=== PATIENT | female | born 1935 | race Caucasian/White ===

== ENCOUNTER 2019-06-19 04:09 | Emergency (ER) | payer MEDICARE ==
[~2019-06-19] VITALS: Ht 165.1 cm; Wt 86.2 kg
[~2019-06-19 04:09] MED LIST: ASPI81EC PO; ATOR10 PO; ATOR20 PO; CALC.25 PO; CIPR500 PO; CLON.2 PO; FURO20; HYDACE5 PO; K-Dur10 MEQ PO; LOSA25; LOSARTAN POTAS100 MG PO; METO100 PO; METO50; Motion Sickness25 M1 PO; Norco 5-325 Ta1 EACH PO; OXYACE5T PO; POTCHL10ER; PROM25 PO; RISE35 PO; RXHYDACE PO; RXOXYACE PO; TRIHYD253B PO; [UNRECOGNIZED DRUG - REMARK]
[2019-06-19 04:55] LABS: BASOPHILS ABSOLUTE AUTO 0.04 K/mm3 (0.00-0.23); BASOPHILS PERCENT AUTO 1 % (0-2); EOSINOPHILS ABSOLUTE AUTO 0.15 K/mm3 (0.00-0.68); EOSINOPHILS PERCENT AUTO 2 % (0-6); Hematocrit 39.5 % (33.0-51.0); Hemoglobin 12.8 g/dL (11.5-16.0); IMMATURE GRAN ABSOLUTE AUTO 0.01 K/mm3 (0.00-0.10); IMMATURE GRAN PERCENT AUTO 0 % (0-1); LYMPHOCYTES ABSOLUTE AUTO 2.16 K/mm3 (0.84-5.20); LYMPHOCYTES PERCENT AUTO 29 % (21-46); MONOCYTES ABSOLUTE AUTO 0.53 K/mm3 (0.16-1.47); MONOCYTES PERCENT AUTO 7 % (4-13); Mean Corpuscular HGB 31.1 pg (26.0-34.0); Mean Corpuscular HGB Conc 32.4 g/dL (31.5-36.5); Mean Corpuscular Volume 96 fL (80-100); Mean Platelet Volume 10.3 fL (9.1-12.4); NEUTROPHILS ABSOLUTE AUTO 4.64 K/mm3 (1.96-9.15); NEUTROPHILS PERCENT AUTO 62 % (41-73); Platelet Count 300 K/mm3 (150-400); RDW Coefficient Variation 13.3 % (11.7-14.2); RDW Standard Deviation 47.6 fL (35.1-46.3); Red Blood Cell Count 4.11 M/mm3 (3.80-5.20); White Blood Cell Count 7.53 K/mm3 (4.00-11.30)
[2019-06-19 05:13] LABS: Albumin, Blood 3.2 g/dL (3.4-5.0); Albumin/Globulin Ratio 0.8 (0.8-1.8); Bilirubin, Total 0.6 mg/dL (0.1-1.0); Calcium, Blood 8.7 mg/dL (8.5-10.1); Creatinine, Blood 1.5 mg/dL (0.40-1.00); Globulin, Blood 3.9 g/dL (2.2-4.0); Total Protein, Blood 7.1 g/dL (6.4-8.2)
[2019-06-19] MEDS ORDERED: MECL12.5 PO (06:14)
== END 2019-06-19 06:00 | disposition home or self-care (01) ==
LOC: ER 04:09
PROVIDERS: Emergency Medicine
DX: R42 Dizziness and giddiness (principal); I10 Essential (primary) hypertension; E78.5 Hyperlipidemia, unspecified; Z79.899 Other long term (current) drug therapy; Z79.82 Long term (current) use of aspirin
CPT/HCPCS: 80053; 84484; 85025; 93005; 93010; 96361; 96374; 99284-25; J2405; J7030

== ENCOUNTER → 2020-12-19 | Outpatient (CLI) | payer MEDICARE ==
[~2020-12-19] MED LIST changes: +MECL12.5 PO
== END | disposition home or self-care (01) ==
LOC: LAB 13:00 → LAB SHORT 13:00
DX: N30.00 Acute cystitis without hematuria (principal); R82.90 Unspecified abnormal findings in urine
CPT/HCPCS: 87077; 87086; 87186

== ENCOUNTER → 2021-02-19 | Outpatient (CLI) | payer MEDICARE ==
[2021-02-19 16:05] LABS: Source, Urine Clean Catch
[2021-02-19 17:45] LABS: Appearance, Urine Hazy (Clear); Bilirubin, Urine Neg (Neg); Blood, Urine 1+ (Neg); Color, Urine Yellow (P-Yellow); Glucose Qualitative, Urine Neg (Neg); Ketones, Urine Neg (Neg); Leukocyte Esterase, Urine 3+ (Neg); Nitrite, Urine Pos (Neg); Protein, Urine 1+ (Neg); Specific Gravity, Urine 1.015 (1.003-1.022); Urobilinogen, Urine NORM (Normal)
[2021-02-19 17:59] LABS: Bacteria Many /hpf; Squamous Epithelial Cells Mod /hpf (Few)
[2021-02-19 18:00] LABS: Renal Epithelial Rare /hpf (0-Rare); Transitional Epithelial Cells Few /hpf (0-Rare)
== END | disposition home or self-care (01) ==
LOC: LAB 16:03 → LAB SHORT 16:03
PROVIDERS: Internal Medicine
DX: R35.0 Frequency of micturition (principal)
CPT/HCPCS: 81001; 87077; 87086; 87186

== ENCOUNTER → 2021-02-24 | Outpatient (CLI) | payer MEDICARE ==
[2021-02-24 10:06] LABS: Source, Urine Voided
[2021-02-24 13:12] LABS: Appearance, Urine Cloudy (Clear); Bilirubin, Urine Neg (Neg); Blood, Urine 1+ (Neg); Color, Urine Yellow (P-Yellow); Glucose Qualitative, Urine Neg (Neg); Ketones, Urine Neg (Neg); Leukocyte Esterase, Urine 3+ (Neg); Nitrite, Urine Pos (Neg); Protein, Urine 2+ (Neg); Specific Gravity, Urine 1.015 (1.003-1.022); Urobilinogen, Urine NORM (Normal)
[2021-02-24 13:43] LABS: Amorphous Light (0-Heavy); Bacteria Many /hpf; Squamous Epithelial Cells Few /hpf (Few); Transitional Epithelial Cells Few /hpf (0-Rare)
[2021-02-24 13:44] LABS: Renal Epithelial Rare /hpf (0-Rare)
== END | disposition home or self-care (01) ==
LOC: LAB 08:30 → LAB SHORT 08:30 → LAB FUT 02-20 07:35
PROVIDERS: Internal Medicine
DX: R82.90 Unspecified abnormal findings in urine (principal)
CPT/HCPCS: 81001; 87077; 87086; 87186

== ENCOUNTER → 2021-05-21 | Outpatient (CLI) | payer MEDICARE ==
[2021-05-21 16:41] LABS: Source, Urine Voided
[2021-05-21 18:53] LABS: Appearance, Urine Hazy (Clear); Bilirubin, Urine Neg (Neg); Blood, Urine 1+ (Neg); Color, Urine Yellow (P-Yellow); Glucose Qualitative, Urine Neg (Neg); Ketones, Urine Neg (Neg); Leukocyte Esterase, Urine 3+ (Neg); Nitrite, Urine Pos (Neg); Protein, Urine 1+ (Neg); Urobilinogen, Urine NORM (Normal)
[2021-05-21 19:23] LABS: Bacteria Many /hpf; Squamous Epithelial Cells Many /hpf (Few); White Blood Cells, Urine 25-50 /hpf (0-5)
== END | disposition home or self-care (01) ==
LOC: LAB SHORT 16:40 → LAB 16:40 → LAB FUT 02-25 13:50
PROVIDERS: Internal Medicine
DX: N39.0 Urinary tract infection, site not specified (principal)
CPT/HCPCS: 81001; 87077; 87086; 87147; 87186

== ENCOUNTER → 2021-05-23 | Outpatient (CLI) | payer MEDICARE ==
[2021-05-23 09:50] LABS: Source, Urine Clean Catch
[2021-05-23 11:50] LABS: Appearance, Urine Hazy (Clear); Bilirubin, Urine Neg (Neg); Blood, Urine 1+ (Neg); Color, Urine Yellow (P-Yellow); Glucose Qualitative, Urine Neg (Neg); Ketones, Urine Neg (Neg); Leukocyte Esterase, Urine 3+ (Neg); Nitrite, Urine Pos (Neg); Protein, Urine 1+ (Neg); Urobilinogen, Urine NORM (Normal)
[2021-05-23 12:00] LABS: Bacteria Many /hpf; Red Blood Cells, Urine 0-2 /hpf (0-2); Squamous Epithelial Cells Few /hpf (Few); White Blood Cells, Urine 50-100 /hpf (0-5)
== END | disposition home or self-care (01) ==
LOC: LAB 09:48 → LAB SHORT 09:48
PROVIDERS: Internal Medicine
DX: N39.0 Urinary tract infection, site not specified (principal); R82.90 Unspecified abnormal findings in urine
CPT/HCPCS: 81001; 87077; 87086; 87186

== ENCOUNTER → 2021-06-08 | Outpatient (CLI) | payer MEDICARE ==
[2021-06-08 15:38] LABS: Appearance, Urine Hazy (Clear); Bilirubin, Urine Neg (Neg); Blood, Urine 3+ (Neg); Color, Urine Yellow (P-Yellow); Glucose Qualitative, Urine Neg (Neg); Ketones, Urine Neg (Neg); Leukocyte Esterase, Urine 3+ (Neg); Nitrite, Urine Pos (Neg); Protein, Urine 2+ (Neg); Specific Gravity, Urine 1.015 (1.003-1.022); Urobilinogen, Urine NORM (Normal)
[2021-06-08 15:57] LABS: White Blood Cells, Urine TNTC /hpf (0-5)
[2021-06-08 15:58] LABS: Bacteria Many /hpf; Squamous Epithelial Cells Mod /hpf (Few)
== END | disposition home or self-care (01) ==
LOC: LAB 13:57 → LAB SHORT 13:57 → LAB FUT 05-22 17:20 → EDSTATUS 05-22 17:20
PROVIDERS: Internal Medicine
DX: N39.0 Urinary tract infection, site not specified (principal); R82.90 Unspecified abnormal findings in urine
CPT/HCPCS: 81001; 87077; 87086; 87186

== ENCOUNTER → 2021-07-06 | Outpatient (CLI) | payer MEDICARE ==
[2021-07-06 15:00] LABS: Source, Urine Clean Catch
[2021-07-06 17:47] LABS: Appearance, Urine Clear (Clear); Bilirubin, Urine Neg (Neg); Blood, Urine 2+ (Neg); Color, Urine Yellow (P-Yellow); Glucose Qualitative, Urine Neg (Neg); Ketones, Urine Neg (Neg); Leukocyte Esterase, Urine Neg (Neg); Nitrite, Urine Neg (Neg); Protein, Urine Neg (Neg); Specific Gravity, Urine 1.015 (1.003-1.022); Urobilinogen, Urine NORM (Normal)
[2021-07-06 18:22] LABS: Bacteria Few /hpf; Squamous Epithelial Cells Few /hpf (Few)
== END | disposition home or self-care (01) ==
LOC: LAB 14:59 → LAB SHORT 14:59 → LAB FUT 06-11 17:15 → EDSTATUS 06-11 17:15
PROVIDERS: Internal Medicine
DX: N39.0 Urinary tract infection, site not specified (principal)
CPT/HCPCS: 81001

== ENCOUNTER → 2021-11-09 | Outpatient (CLI) | payer MEDICARE ==
[2021-11-12 11:10] LABS: M-SPIKE, % Not Observed % (Not Observed); PROTEIN,TOTAL,URINE 14.6 mg/dL (Not Estab.)
== END | disposition home or self-care (01) ==
LOC: LAB 06:00 → LAB SHORT 06:00
PROVIDERS: Internal Medicine
DX: R79.89 Other specified abnormal findings of blood chemistry (principal)
CPT/HCPCS: 81050; 84156; 84166

== ENCOUNTER 2022-09-27 08:02 | Day surgery (SDC) | payer MEDICARE ==
[~2022-09-27] VITALS: Ht 165.1 cm; Wt 79.4 kg
--- NOTE | 2022-09-27 11:08 | NUR ---
PT SITTING IN RECLINER. PT DRINKING COFFEE AND VISITING WITH FAMILY. LACW PACEMAKER CHANGE-OUT SITE SOFT NON-TENDER WITH NO HEMATOMA, NO BLEEDING AND INTACT DRESSING. PT DENIES CP. CALL LIGHT IN REACH.
--- NOTE | 2022-09-27 11:46 | NUR ---
NO CHANGES TO LACW SITE. DISCHARGE INSTRUCTIONS REVIEWED ALL QUESTIONS ANSWERED. FULL REPORT PROVIDED JESSICA Ordaz RN TO ASSUME CARE OF PT IN RECOVERY ROOM.
== END 2022-09-27 11:55 | disposition home or self-care (01) ==
LOC: MHTC 08:02
DX: Z45.010 Encounter for checking and testing of cardiac pacemaker pulse generator [battery] (principal); E78.5 Hyperlipidemia, unspecified; I10 Essential (primary) hypertension
CPT/HCPCS: 33228; 99152; 99153; C1781; C1785; J0690; J1644; J2250; J3010; J7030; J7040

== ENCOUNTER → 2023-01-17 | Outpatient (CLI) | payer MEDICARE ==
[2023-01-17 17:21] LABS: Creatinine, Urine Random 64.6 mg/dL (27.00-270.00); Protein, Urine Random 34.7 mg/dL (0.0-11.9); Protein/Creat Ratio, Ur Random 0.5
== END | disposition home or self-care (01) ==
LOC: LAB 05:17 → LAB SHORT 05:17
PROVIDERS: Internal Medicine Nephrology
DX: N18.4 Chronic kidney disease, stage 4 (severe) (principal)
CPT/HCPCS: 82570; 84156

== ENCOUNTER 2023-02-19 19:18 | Inpatient (IN) | payer MEDICARE ==
[~2023-02-19] VITALS: Ht 157.5 cm; Wt 74.0 kg
[2023-02-19 19:31] LABS: Base Excess Venous -1.9 mmol/L; Bicarbonate Venous 22.2 mmol/L (24.0-30.0); PCO2 Venous 42.5 mmHg (38-42); pH Blood Venous 7.35 (7.34-7.37)
[2023-02-19] MEDS ORDERED: VITAMIN B125000 MC1 PO (19:41)
[2023-02-19 19:48] LABS: BASOPHILS ABSOLUTE AUTO 0.07 K/mm3 (0.00-0.23); BASOPHILS PERCENT AUTO 1 % (0-2); EOSINOPHILS ABSOLUTE AUTO 0.13 K/mm3 (0.00-0.68); EOSINOPHILS PERCENT AUTO 1 % (0-6); Hematocrit 50.9 % (33.0-51.0); Hemoglobin 15.9 g/dL (11.5-16.0); Mean Corpuscular HGB 28.1 pg (26.0-34.0); Mean Corpuscular HGB Conc 31.2 g/dL (31.5-36.5); Mean Corpuscular Volume 90 fL (80-100); Mean Platelet Volume 11.1 fL (9.1-12.4); Platelet Count 427 K/mm3 (150-400); RDW Standard Deviation 42.6 fL (35.1-46.3); Red Blood Cell Count 5.66 M/mm3 (3.80-5.20); White Blood Cell Count 15.45 K/mm3 (4.00-11.30)
[2023-02-19 19:54] LABS: IMMATURE GRAN ABSOLUTE AUTO 0.04 K/mm3 (0.00-0.10); IMMATURE GRAN PERCENT AUTO 0 % (0-1); LYMPHOCYTES ABSOLUTE AUTO 6.06 K/mm3 (0.84-5.20); LYMPHOCYTES PERCENT AUTO 39 % (21-46); MONOCYTES ABSOLUTE AUTO 0.75 K/mm3 (0.16-1.47); MONOCYTES PERCENT AUTO 5 % (4-13); NEUTROPHILS PERCENT AUTO 54 % (41-73)
[2023-02-19 20:08] LABS: Albumin/Globulin Ratio 0.5 (0.8-1.8); Bilirubin, Total 0.6 mg/dL (0.1-1.0); Bun/Creatinine Ratio 14.6 (12.0-20.0); Calcium, Blood 9.3 mg/dL (8.5-10.1); Creatinine, Blood 2.19 mg/dL (0.40-1.00); Globulin, Blood 5.8 g/dL (2.2-4.0); Total Protein, Blood 8.8 g/dL (6.4-8.2)
[2023-02-19 20:09] LABS: Potassium, Blood 5.4 mmol/L (3.5-5.5)
[2023-02-20] VITALS (16 sets, daily range): BP systolic 95–178; BP diastolic 67–106
[2023-02-20 00:23] LABS: Influenza A, PCR NEGATIVE (NEGATIVE); Influenza B, PCR NEGATIVE (NEGATIVE); Resp Syncytial Virus, PCR NEGATIVE (NEGATIVE); SARS-Cov-2 (COVID-19) PCR, MMC NEGATIVE (NEGATIVE)
[2023-02-20 01:01] LABS: Anti-Xa UFH, PHA Monitoring <0.10 IU/mL; International Normalized Ratio 0.92; Prothrombin Time Results 9.7 Sec (9.7-11.5)
[2023-02-20 03:52] LABS: BASOPHILS ABSOLUTE AUTO 0.04 K/mm3 (0.00-0.23); BASOPHILS PERCENT AUTO 0 % (0-2); EOSINOPHILS PERCENT AUTO 0 % (0-6); Hematocrit 42.6 % (33.0-51.0); Hemoglobin 13.7 g/dL (11.5-16.0); IMMATURE GRAN ABSOLUTE AUTO 0.06 K/mm3 (0.00-0.10); IMMATURE GRAN PERCENT AUTO 0 % (0-1); LYMPHOCYTES ABSOLUTE AUTO 2.45 K/mm3 (0.84-5.20); LYMPHOCYTES PERCENT AUTO 16 % (21-46); MONOCYTES PERCENT AUTO 5 % (4-13); Mean Corpuscular HGB 28.7 pg (26.0-34.0); Mean Corpuscular HGB Conc 32.2 g/dL (31.5-36.5); Mean Corpuscular Volume 89 fL (80-100); Mean Platelet Volume 10.2 fL (9.1-12.4); NEUTROPHILS PERCENT AUTO 78 % (41-73); Platelet Count 443 K/mm3 (150-400); RDW Coefficient Variation 12.9 % (11.7-14.2); RDW Standard Deviation 42.3 fL (35.1-46.3); Red Blood Cell Count 4.77 M/mm3 (3.80-5.20); White Blood Cell Count 15.55 K/mm3 (4.00-11.30)
[2023-02-20 04:07] LABS: Bun/Creatinine Ratio 15.7 (12.0-20.0); Calcium, Blood 8.9 mg/dL (8.5-10.1); Creatinine, Blood 2.36 mg/dL (0.40-1.00); Potassium, Blood 4.6 mmol/L (3.5-5.5)
--- NOTE | 2023-02-20 07:21 | NUR ---
SHIFT SUMMARY/ARRIVAL TO PCU PT ARRIVED TO PCU AT APPROXIMATELY 0000. PT SLID OVER FROM ER GURNEY TO HOSPITAL BED BY 3 CLINICAL STAFF MEMBERS. PT A&Ox4, CALLS AND COMMUNICATES NEEDS APPROPRIATELY, ORIENTED PT TO CALL LIGHT/UNIT. DAUGHTER AT BEDSIDE, STAYING OVER NIGHT WITH PT. PT ARRIVED ON 5L VIA NC, TITRATED PT DOWN TO 4L VIA NC WITH SpO2> 92%. PT DENIED CP/PRESSURE/TIGHTNESS UPON ARRIVAL TO PCU, REPORTED MILD SOB. PACED 70-80's, BP ELEVATED, MEDICATED PER EMAR. PT's BP REMAINED ELEVATED, NOTIFIED PROVIDED AND ORDERS PLACED FOR HYDRALAZINE. PT DID NOT TOLERATE HYDRALAZINE WELL, PT BECAME SOB, DIAPHORETIC, FLUSHED, REPORTED NAUSEA W/ DRY HEAVING, CP, AND CHEST/THROAT TIGHTNESS. SBP DROPPED FROM 170 TO 114, HR SUSTAINING V-PACED 130's. PROVIDED NOTIFIED, ORDERS PLACE. PT TOLERATED IV LOPRESSOR WELL, HR CAME DOWN TO LOW 100's, V-PACED, BP STABLE WITH SBP 150's. AFTER RECEIVING LOPRESSOR AND HR AND BP IMPROVED, PT APPEARED MUCH MORE RELAXED, WAS NO LONGER DIAPHORETIC, FLUSHED, NAUSEOUS OR DRY HEAVING. THOUGH, PT REPORTED THAT SHE STILL FELT JUST "TERRIBLE" BEFORE AND WAS STILL HAVING SOME CHEST/THROAT TIGHTNESS AND SOB. REQUESTED USING PUREWICK UPON ARRIVAL PCU. THIS DID NOT END UP WORKING FOR PT, SHE WAS ABLE TO SUCCESSFULLY USE BEDPAN. HEPARIN gtt INFUSING PER EMAR, MANAGED BY PHARMACY. NO OTHER EVENTS, REPORT GIVEN TO DAY SHIFT RN.
--- NOTE | 2023-02-20 10:17 | NUR ---
AM NOTES: PT C/O CHEST PRESSURE/PAIN 5/10 WITH NAUSEA AND SOB THIS MORNING VITALS HRR VPACED AT 100'S, SBP 150'S, SATS ABOVE 90% ON 4L OF O2, [place]RILE[place] [address], CALLED CRITICAL RESULT TO DR PUENTES AND DR TAVAREZ. DR TAVAREZ CAME IN TO SEE PT WHILE PT WAS HAVING CHEST PAIN PLAN FOR ANGIO THIS MORNING, NITRO X1 SL WAS GIVEN AND WAS EFFECTIVE EKG WAS DONE WELL. NS STARTED AT 100MLS/HR D/T KIDNEY FUNCTION, NEPHROLOGY CONSULT ORDERED. FAMILY WAS AT THE BEDSIDE WHEN DR TAVAREZ CONSENTED THE PT, AWARE OF THE PLAN OF CARE. ALL NEW MEDS STARTED THIS MORNING PER DR TAVAREZ'S ORDER. PT CURRENTLY TAKEN TO INSOLE DOUBLER AT THIS TIME, WILL CONTINUE TO MONITOR
--- NOTE | 2023-02-20 12:04 | NUR ---
PT TRANSFERED FROM DATA MANAGEMENT ENGINEER TO ICU AT 1130. REPORT TAKEN FROM CHAN MORE. PT AWAKE, DROWSY. DENIES C/O PAIN. LM OCCULUDED, PT TO BE TRANSFERED TO [facility]. PT C/O NAUSEA, EMESIS BAG, SUCTION AT BEDSIDE, COOL CLOTH TO HEAD. PT HYPOTENSIVE W MAP >65. PT 100% PACED IN 80'S. SATS >90% ON 6L VIA N/C. TR BAND TO RIGHT RADIAL ART. HAND COOL AND DUSKY, WITH GOOD CAP REFILL AND GOOD WAVE FORM ON SPO2. HEPARIN GTT TO BE HELD FOR NOW PER DR TAVAREZ.
--- NOTE | 2023-02-20 13:42 | NUR ---
PT LEFT AT 1338 IN CARE OF AMBULENCE TEAM. 2CC LET OUT OF TR BAND PRIOR TO DISCHARGE. HAND COLOR AND TEMP IMPROVED FROM ADMIT TO DISCHARGE. PRIOR TO THE 2CC OF AIR REMOVED, HAND MORE PINK AND WARM. HAND CONT TO HAVE GOOD CAP REFILL AND GOOD SPO2 WAVE FORM. DR TAVAREZ CALLED FOR UPDATE PRIOR TO DISCHARGE; IVF NOT TO BE RESTARTED, [facility] NTG PASTE REMOVED-PER DR TAVAREZ. ECHO COMPLETED PRIOR TO DISCHARGE. MULTIPLE FAMILY MEMBERS AT BEDSIDE.
--- NOTE | 2023-02-20 14:42 | NUR ---
Intital visit with family to introduce palliative care. Physician called and stated accepting bed. Family has decided to persue care. pt kps score is 40%. will follow up it pt does not have surgery will see if hospice care initiated.
== END 2023-02-20 13:44 | disposition short-term general hospital (02) | DRG 280 ==
LOC: ER 19:18 → PCU 23:21 → ICUW 02-20 11:44
PROVIDERS: Student in an Organized Health Care Education/Training Program; ADMIT Internal Medicine
PROC: 5A09357 Assistance with Respiratory Ventilation, Less than 24 Consecutive Hours, Continuous Positive Airway Pressure (ICD-10-PCS; 2023-02-19)
PROC: 4A02XFZ Measurement of Cardiac Rhythm, External Approach (ICD-10-PCS; 2023-02-19)
PROC: 4A023N7 Measurement of Cardiac Sampling and Pressure, Left Heart, Percutaneous Approach (ICD-10-PCS; principal; 2023-02-20)
PROC: B2111ZZ Fluoroscopy of Multiple Coronary Arteries using Low Osmolar Contrast (ICD-10-PCS; 2023-02-20)
PROC: B44LZZZ Ultrasonography of Femoral Artery (ICD-10-PCS; 2023-02-20)
DX: I21.4 Non-ST elevation (NSTEMI) myocardial infarction (principal); J96.01 Acute respiratory failure with hypoxia; J96.02 Acute respiratory failure with hypercapnia; I16.1 Hypertensive emergency; N18.4 Chronic kidney disease, stage 4 (severe); N17.9 Acute kidney failure, unspecified; N25.81 Secondary hyperparathyroidism of renal origin; J81.1 Chronic pulmonary edema; I13.0 Hypertensive heart and chronic kidney disease with heart failure and stage 1 through stage 4 chronic kidney disease, or unspecified chronic kidney disease; Z66 Do not resuscitate; Z51.5 Encounter for palliative care; I24.9 Acute ischemic heart disease, unspecified; E78.5 Hyperlipidemia, unspecified; I25.5 Ischemic cardiomyopathy; I27.20 Pulmonary hypertension, unspecified; I50.9 Heart failure, unspecified; E11.22 Type 2 diabetes mellitus with diabetic chronic kidney disease; E87.5 Hyperkalemia; E55.9 Vitamin D deficiency, unspecified; E87.70 Fluid overload, unspecified; D75.839 Thrombocytosis, unspecified; I25.10 Atherosclerotic heart disease of native coronary artery without angina pectoris; Z20.822 Contact with and (suspected) exposure to COVID-19; Z88.8 Allergy status to other drugs, medicaments and biological substances; Z79.82 Long term (current) use of aspirin; Z95.0 Presence of cardiac pacemaker; Z99.81 Dependence on supplemental oxygen; Z79.899 Other long term (current) drug therapy; Z79.02 Long term (current) use of antithrombotics/antiplatelets; Z79.01 Long term (current) use of anticoagulants; Z79.51 Long term (current) use of inhaled steroids; Z86.79 Personal history of other diseases of the circulatory system
CPT/HCPCS: 0241U; 36415; 71045; 76937; 80048; 80053; 82803; 83605; 83880; 84145; 84484; 85025; 85520; 85610; 85730; 87040; 93005; 93010; 93458; 94660; 94760; 96374; 99285-25; A9270; C1751; C1769; C1887; C1894; C8929; J0360; J1644; J1940; J2250; J2405; J3010; J7030; J7050; Q9957; Q9967

== ENCOUNTER 2023-03-11 09:07 | Emergency (ER) | payer MEDICARE ==
[~2023-03-11] VITALS: Ht 165.1 cm; Wt 72.6 kg
[~2023-03-11 09:07] MED LIST changes: +ASPI81CH PO; -ASPI81EC PO; -ATOR20 PO; +ATOR40TA PO; +VITAMIN B125000 MC1 PO
[2023-03-11] MEDS ORDERED: EFFIENT10 MG PO (09:47)
[2023-03-11] MEDS ORDERED: Hair, Skin & N1 EACH PO (09:48)
[2023-03-11] MEDS ORDERED: CARV3.125 PO (09:49)
[2023-03-11 09:50] LABS: BASOPHILS ABSOLUTE AUTO 0.04 K/mm3 (0.00-0.23); BASOPHILS PERCENT AUTO 0 % (0-2); EOSINOPHILS ABSOLUTE AUTO 0.09 K/mm3 (0.00-0.68); EOSINOPHILS PERCENT AUTO 1 % (0-6); Hematocrit 22.4 % (33.0-51.0); Hemoglobin 6.7 g/dL (11.5-16.0); IMMATURE GRAN ABSOLUTE AUTO 0.04 K/mm3 (0.00-0.10); IMMATURE GRAN PERCENT AUTO 0 % (0-1); LYMPHOCYTES ABSOLUTE AUTO 1.09 K/mm3 (0.84-5.20); LYMPHOCYTES PERCENT AUTO 11 % (21-46); MONOCYTES ABSOLUTE AUTO 0.59 K/mm3 (0.16-1.47); MONOCYTES PERCENT AUTO 6 % (4-13); Mean Corpuscular HGB 29.9 pg (26.0-34.0); Mean Corpuscular HGB Conc 29.9 g/dL (31.5-36.5); Mean Corpuscular Volume 100 fL (80-100); Mean Platelet Volume 9.9 fL (9.1-12.4); NEUTROPHILS ABSOLUTE AUTO 8.04 K/mm3 (1.96-9.15); NEUTROPHILS PERCENT AUTO 81 % (41-73); Platelet Count 421 K/mm3 (150-400); RDW Coefficient Variation 17.4 % (11.7-14.2); RDW Standard Deviation 62.3 fL (35.1-46.3); Red Blood Cell Count 2.24 M/mm3 (3.80-5.20); White Blood Cell Count 9.89 K/mm3 (4.00-11.30)
[2023-03-11 10:42] LABS: International Normalized Ratio 0.92; Prothrombin Time Results 9.7 Sec (9.7-11.5)
[2023-03-11 11:20] LABS: Albumin, Blood 2.3 g/dL (3.4-5.0); Albumin/Globulin Ratio 0.6 (0.8-1.8); Bilirubin, Total 0.5 mg/dL (0.1-1.0); Bun/Creatinine Ratio 20.3 (12.0-20.0); Calcium, Blood 8.6 mg/dL (8.5-10.1); Creatinine, Blood 1.92 mg/dL (0.40-1.00); Globulin, Blood 3.8 g/dL (2.2-4.0); Potassium, Blood 3.9 mmol/L (3.5-5.5); Total Protein, Blood 6.1 g/dL (6.4-8.2)
[2023-03-11 14:00] VITALS: BP 98/79
[2023-03-11 14:46] LABS: Hematocrit 27.4 % (33.0-51.0); Hemoglobin 8.3 g/dL (11.5-16.0); Mean Corpuscular HGB 29.2 pg (26.0-34.0); Mean Corpuscular HGB Conc 30.3 g/dL (31.5-36.5); Mean Corpuscular Volume 97 fL (80-100); Mean Platelet Volume 9.9 fL (9.1-12.4); NRBC ABSOLUTE 0.02 K/mm3 (0.00-0.02); NRBC Auto 0.2 /100 WBC (0.0-0.2); Platelet Count 426 K/mm3 (150-400); RDW Standard Deviation 62.8 fL (35.1-46.3); Red Blood Cell Count 2.84 M/mm3 (3.80-5.20); White Blood Cell Count 10.09 K/mm3 (4.00-11.30)
[2023-03-11] MEDS ORDERED: FERROUS GLUCON324 M2 PO (15:03)
== END 2023-03-11 16:22 | disposition home or self-care (01) ==
LOC: ER 09:07
PROVIDERS: Student in an Organized Health Care Education/Training Program
DX: D62 Acute posthemorrhagic anemia (principal); I97.630 Postprocedural hematoma of a circulatory system organ or structure following a cardiac catheterization; R00.0 Tachycardia, unspecified; I10 Essential (primary) hypertension; E78.5 Hyperlipidemia, unspecified; Z88.8 Allergy status to other drugs, medicaments and biological substances; Z79.82 Long term (current) use of aspirin; Z79.899 Other long term (current) drug therapy
CPT/HCPCS: 74174; 80053; 83735; 85025; 85027; 85610; 85730; 86850; 86900; 86901; 86923; J7030; P9016; Q9967

== ENCOUNTER 2023-11-03 03:14 | Emergency (ER) | payer MEDICARE ==
[~2023-11-03] VITALS: Ht 165.1 cm; Wt 74.8 kg
[~2023-11-03 03:14] MED LIST changes: +CARV3.125 PO; +EFFIENT10 MG PO; +FERROUS GLUCON324 M2 PO; +Hair, Skin & N1 EACH PO
[2023-11-03 04:11] LABS: BASOPHILS ABSOLUTE AUTO 0.05 K/mm3 (0.00-0.23); BASOPHILS PERCENT AUTO 1 % (0-2); EOSINOPHILS ABSOLUTE AUTO 0.18 K/mm3 (0.00-0.68); EOSINOPHILS PERCENT AUTO 2 % (0-6); Hematocrit 40.7 % (33.0-51.0); Hemoglobin 13.6 g/dL (11.5-16.0); IMMATURE GRAN ABSOLUTE AUTO 0.01 K/mm3 (0.00-0.10); IMMATURE GRAN PERCENT AUTO 0 % (0-1); LYMPHOCYTES ABSOLUTE AUTO 2.32 K/mm3 (0.84-5.20); LYMPHOCYTES PERCENT AUTO 28 % (21-46); MONOCYTES ABSOLUTE AUTO 0.63 K/mm3 (0.16-1.47); MONOCYTES PERCENT AUTO 8 % (4-13); Mean Corpuscular HGB 28.9 pg (26.0-34.0); Mean Corpuscular HGB Conc 33.4 g/dL (31.5-36.5); Mean Corpuscular Volume 86 fL (80-100); Mean Platelet Volume 10.2 fL (9.1-12.4); NEUTROPHILS ABSOLUTE AUTO 4.99 K/mm3 (1.96-9.15); NEUTROPHILS PERCENT AUTO 61 % (41-73); Platelet Count 346 K/mm3 (150-400); RDW Coefficient Variation 13.4 % (11.7-14.2); RDW Standard Deviation 41.6 fL (35.1-46.3); Red Blood Cell Count 4.71 M/mm3 (3.80-5.20); White Blood Cell Count 8.18 K/mm3 (4.00-11.30)
[2023-11-03 04:43] LABS: Albumin, Blood 3.2 g/dL (3.4-5.0); Albumin/Globulin Ratio 0.7 (0.8-1.8); Bilirubin, Total 0.4 mg/dL (0.1-1.0); Bun/Creatinine Ratio 20.9 (12.0-20.0); Calcium, Blood 9.1 mg/dL (8.5-10.1); Creatinine, Blood 2.3 mg/dL (0.40-1.00); Globulin, Blood 4.5 g/dL (2.2-4.0); Potassium, Blood 3.5 mmol/L (3.5-5.5); Total Protein, Blood 7.7 g/dL (6.4-8.2)
[2023-11-03 05:40] LABS: Source, Urine Straight Cath
[2023-11-03 06:08] LABS: Appearance, Urine Clear (Clear); Bilirubin, Urine Neg (Neg); Blood, Urine 1+ (Neg); Glucose Qualitative, Urine Neg (Neg); Ketones, Urine Neg (Neg); Leukocyte Esterase, Urine Neg (Neg); Nitrite, Urine Neg (Neg); Protein, Urine Neg (Neg); Specific Gravity, Urine 1.015 (1.003-1.022); Urobilinogen, Urine NORM (Normal)
[2023-11-03 06:23] LABS: Color, Urine Pale Yellow (P-Yellow)
[2023-11-03 06:24] LABS: Bacteria Not Seen /hpf; Red Blood Cells, Urine 0-2 /hpf (0-2); Squamous Epithelial Cells Rare /hpf (Few); White Blood Cells, Urine Not Seen /hpf (0-5)
[2023-11-03 07:00] VITALS: BP 148/78
== END 2023-11-03 07:14 | disposition home or self-care (01) ==
LOC: ER 03:14
PROVIDERS: Emergency Medicine
DX: R10.31 Right lower quadrant pain (principal); R10.32 Left lower quadrant pain; Z88.8 Allergy status to other drugs, medicaments and biological substances; Z79.899 Other long term (current) drug therapy; Z79.82 Long term (current) use of aspirin; I10 Essential (primary) hypertension; E78.5 Hyperlipidemia, unspecified; I25.2 Old myocardial infarction
CPT/HCPCS: 80053; 81001; 83690; 84484; 85025; 93005; 93010; 99284-25